=== PATIENT | female | born 1985 | race Hispanic/Latino ===

== ENCOUNTER 2021-11-17 08:29 | Outpatient (CLI) | payer SELFPAY ==
--- NOTE | ~2021-11-17 | US_ITS ---
EXAMINATION: US pelvic complete w TV DATE: 11/17/2021 10:16 INDICATION: Pelvic pain after recent IUD placement. Comparison:No prior studies for comparison. TECHNIQUE: Multiple transabdominal and endovaginal sonographic images of the pelvis performed. FINDINGS: The uterus measures 9.9 x 5.1 x 6.4 cm.. IUD is identified in the endometrium. The endometr ial complex measures 12 mm. The right ovary measures 3.5 x 2.1 x 2.7 cm and the left ovary measures 3.6 x 1.8 x 2.9 cm. There ar e small follicles in each ovary. Normal doppler signal in both ovaries. There is no free fluid in the pelvis. There are no abnormal masses seen on either side. IMPRESSION: 1. IUD present in the endometrium. Mildly thickened endometrium measuring 12 mm. Reviewed, dictated and finalized at location A. IMPRESSION: 1. IUD present in the endometrium. Mildly thickened endometrium measuring 12 mm .
--- NOTE | ~2021-11-17 | US_ITS ---
US right upper quadrant INDICATION: Elevated liver enzymes PROCEDURE: Realtime right upper abdominal ultrasound. COMPARISON: No prior studies for comparison. FINDINGS: The pancreas is normal without focal mass or pancreatic ductal dilation. Liver echotexture is increased, consistent with fatty infiltration. There is normal directional flow in the portal ve in. The gallbladder is normal without stones, gallbladder wall thickening or pericholecystic fluid. Comm on bile duct measures 3 mm. No sonographic Luther's sign. Right kidney is grossly unremarkable. IMPRESSION: 1: Hepatic steatosis. Reviewed, dictated and finalized at location A. IMPRESSION: 1: Hepatic steatosis.
== END 2021-11-17 08:30 ==
PROVIDERS: PCP Physician Assistant; Visit Provider Physician Assistant
DX: R10.2 Pelvic and perineal pain (principal); R74.01 Elevation of levels of liver transaminase levels; K76.0 Fatty (change of) liver, not elsewhere classified; Z97.5 Presence of (intrauterine) contraceptive device; R93.89 Abnormal findings on diagnostic imaging of other specified body structures
CPT/HCPCS: 76705; 76830; 76856

== ENCOUNTER → 2022-04-12 17:09 | Outpatient (CLI) | payer SELFPAY ==
--- NOTE | ~2022-04-12 | XR_ITS ---
EXAM: XR lumbar spine 2-3V DATE: 04/12/2022 17:58 HISTORY: Low back pain . COMPARISON: None available. FINDINGS: 5 nonrib-bearing lumbar-type vertebral bodies. Pedicles intact. Normal vertebral body alig nment. Vertebral body heights preserved. Disc spaces maintained. Normal facets and posterior elements . No fracture or dislocation. IUD over the pelvis. IMPRESSION: Unremarkable lumbar spine radiograph findings. Reviewed, dictated and finalized at location K. [employer]
== END ==
PROVIDERS: PCP Physician Assistant; Visit Provider Physician Assistant
DX: M54.50 Low back pain, unspecified (principal)
CPT/HCPCS: 72100

== ENCOUNTER → 2022-10-25 14:15 | Outpatient (REF) | payer SELFPAY | LOC: ANHLAB 14:15 | PROVIDERS: PCP Physician Assistant; Visit Provider Physician Assistant Surgical | DX: N61.0 Mastitis without abscess (principal); L72.0 Epidermal cyst | CPT/HCPCS: 88305 ==